=== PATIENT | male | born 1945 | race Caucasian/White ===

== ENCOUNTER 2017-06-22 16:39 | Observation (INO) | payer MEDICARE ==
[~2017-06-22] VITALS: Ht 172.7 cm; Wt 83.8 kg
[~2017-06-22 16:39] MED LIST: ALBUTEROL0.5 % IN; AMLODIPINE5 MG PO; AMOX/K CLAV500 MG PO; AMOXICILLIN500 MG OR; ANUCORT-HC25 MG RE; ASTEPRO0.15 %; BENICAR20 MG OR; BL ADULT ASA81 MG OR; BROVANA15 MCG IN; CARDIZEM120 MG OR; CARTIA XT240 MG/24 PO; CIPRO500 MG PO; CO Q 10100 MG OR; CRESTOR20 MG PO; DILAUDID 2MG2 MG/TA1 PO; DILTIAZEM120 M1 OR; DILTIAZEM30 MG OR; DUONEB IN; FLONASE NASAL50 MCG; GARLIC1000 MG OR; GNP MELATONIN3 MG OR; ISOSORB MONO30 MG PO; KEFLEX500 MG PO; KRILL OIL300 MG OR; KRILL OIL300 MG PO; LEVOTHYROXIN25 MC1 OR; LEVOTHYROXIN50 MCG PO; LEVOTHYROXINE25 MCG OR; LEVOTHYROXINE50 MCG OR; LIDOCAINE; LOPID600 MG PO; LORTAB 10-325 M1 TAB PO; LORTAB 5 OR; LUTEIN20 MG OR; MEDDOSEPAK OR; MEDDOSEPAK PO; MELOXICAM15 MG PO; METOPROL TAR25 MG PO; MULTIVITAM10 OR; OMEPRAZOLE20 MG PO; OMNARIS; PATANASE0.6 %; PREDNISONE20 MG OR; PULMICORT0.5MG/2ML IN; RED YEAST XX; SIMVASTATIN20 MG OR; SYMBICORT1 AE1 IN; VITAMIN B-121000 MC1 SL; ZINC25 MG OR; ZITHROMAX500 MG PO
--- NOTE | 2017-06-22 16:45 | NUR ---
PT IMMEDIATELY TO ROOM 6, EKG PERFORMED.
[2017-06-22] MEDS ORDERED: PANTOPRAZOLE SO40 MG PO (17:06)
[2017-06-22] MEDS ORDERED: METO25TAB PO (17:09)
--- NOTE | 2017-06-22 17:29 | NUR ---
VSS. IV SITE HEALTHY. NO C/O PAIN/DISCOMFORT. RESP EVEN AND UNLABORED. SKIN WARM AND DRY. CALL LIGHT WITHIN REACH.
[2017-06-22 17:34] LABS: HEMATOCRIT 40.3 % (39.0-50.0); HEMOGLOBIN 13.3 g/dl (14.0-18.0); IMMATURE GRANULOCYTES 0.3 % (0.0-1.0); MEAN CELL VOLUME 94.2 fL CALC (80.0-100.0); MEAN CORPUSCULAR HGB 31.1 pG CALC (26.0-32.0); NEUT# 4.94 thou/uL (1.82-7.42); RED BLOOD COUNT 4.28 mill/uL (4.70-6.10); RED CELL DISTRI WIDTH 13.2 % (11.5-15.5)
[2017-06-22 17:46] LABS: ALBUMIN 4.5 g/dL (3.2-5.0); ALKALINE PHOSPHATASE 58 u/l (38-126); AMYLASE 100 u/l (30-110); ANION GAP 18 (6-22 (CALC)); BILIRUBIN, TOTAL 0.4 mg/dL (0.0-1.4); BUN 30 mg/dL (8-23); BUN/CREATININE RATIO 16 (12-20 (CALC)); CALCIUM 9.6 mg/dL (8.4-10.2); CARBON DIOXIDE 20 mmol/l (22-30); CHLORIDE 108 mmol/l (95-108); CREATININE 1.9 mg/dL (0.7-1.3); GFR 35 ML/MIN (>=60 (CALC)); GFR FOR AFR.AMER. 42 ML/MIN (>=60 (CALC)); GLUCOSE 143 mg/dL (82-115); LIPASE 164 u/l (23-300); POTASSIUM 4.1 mmol/l (3.5-5.1); SGOT/AST 34 u/l (19-48); SGPT/ALT 54 u/l (11-66); SODIUM 142 mmol/l (137-146); TOTAL PROTEIN 7.3 g/dL (6.3-8.2)
[2017-06-22 17:49] LABS: PROTHROMBIN TIME 10.4 SECONDS (9.0-12.5)
[2017-06-22 17:58] LABS: MYOGLOBIN 168 ng/mL (0 - 121)
--- NOTE | 2017-06-22 18:30 | NUR ---
PT AWARE OF PENDING ADMISSION. NO FURTHER C/O CHEST PAIN. NO N/V. SKIN WARM AND DRY. VSS. IV SITE HEALTHY. RESP EVEN AND UNLABORED. ANAT.
--- NOTE | 2017-06-22 19:07 | NUR ---
REPORT CALLED TO NURSE ON [facility]. TELEMETRY IN PLACE. IV SITE HEALTHY.
--- NOTE | 2017-06-22 19:15 | NUR ---
PT ARRIVED TO UNIT VIA STRETCHER WITH ER STAFF. AMBULATED TO BED INDEPENDENTLY WITH SUPERVISION. ALERT AND ORIENTED. DENIES PAIN UPON ARRIVAL. RESPIRATIONS EVEN AND UNLABORED. ORIENTED TO ROOM AND CALL LIGHT SYSTEM. TO BRING CPAP MACHINE TO SLEEP WTIH. NO REQUESTS AT THIS TIME. SAFETY MEASURES IN PLACE. CALL LIGHT WITHIN REACH.
--- NOTE | 2017-06-22 19:15 | NUR ---
PT. TAKEN TO MS VIA STRETCHER, NO C/O.
[2017-06-22 19:20] VITALS: BP 129/83
[2017-06-23 00:20] VITALS: BP 106/67
[2017-06-23 00:46] LABS: URINE BILIRUBIN - DIPSTICK NEGATIVE (NEGATIVE); URINE BLOOD DIPSTICK TRACE-LYSED (NEGATIVE); URINE CLARITY CLEAR; URINE COLOR YELLOW; URINE GLUCOSE - DIPSTICK NEGATIVE (NEGATIVE); URINE KETONE NEGATIVE (NEGATIVE); URINE LEUK ESTERASE NEGATIVE (NEGATIVE); URINE NITRITE - DIPSTICK NEGATIVE (Negative); URINE PROTEIN - DIPSTICK NEGATIVE (NEG-TRACE); URINE UROBILINOGEN - DIPSTICK 0.2 E.U./dL (0.2)
--- NOTE | 2017-06-23 00:49 | NUR ---
PT ASLEEP AT THIS TIME. NO SIGNS OF DISTRESS NOTED. RESPIRATIONS EVEN AND UNLABORED. SAFETY MEASURES IN PLACE. CALL LIGHT WITHIN REACH.
--- NOTE | 2017-06-23 04:01 | NUR ---
PT ASLEEP AT THIS TIME. NO SIGNS OF DISTRESS NOTED. RESPIRATIONS EVEN AND UNLABORED. NO CHANGES IN ASSESSMENT NOTED. SAFETY MEASURES IN PLACE. CALL LIGHT WITHIN REACH.
[2017-06-23 04:35] VITALS: BP 116/71
[2017-06-23 06:26] LABS: CHOLESTEROL HDL RATIO 2.2 (<4.4 (CALC))
--- NOTE | 2017-06-23 07:00 | NUR ---
REPORT RECIEVED FROM MARIKA BROWNE; PT RESTING IN BED WITH EYES CLOSED AND CPAP IN PLACE; FALL PRECAUTIONS IN PLACE; CALL LIGHT WITHIN REACH; WILL CONTINUE TO MONITOR
[2017-06-23 09:02] VITALS: BP 123/68
[2017-06-23 11:32] VITALS: BP 129/69
--- NOTE | 2017-06-23 14:35 | NUR ---
Discharge instructions given. Patient verbalizes understanding of same. Discharged in stable condition via Wheelchair to Home with family. All belongings sent with pt.
== END 2017-06-23 14:36 | disposition home or self-care (01) ==
LOC: ENPENDDIS → ED 16:39 → ED-I 17:25 → ED 17:25 → ED-I 18:10 → ED 18:30 → MS2 18:31
PROVIDERS: Emergency Medicine; Internal Medicine; ADMIT Internal Medicine; ATTEND Internal Medicine
DX: I25.119 Atherosclerotic heart disease of native coronary artery with unspecified angina pectoris (principal); I12.9 Hypertensive chronic kidney disease with stage 1 through stage 4 chronic kidney disease, or unspecified chronic kidney disease; N18.3 Chronic kidney disease, stage 3 (moderate); J44.9 Chronic obstructive pulmonary disease, unspecified; E78.5 Hyperlipidemia, unspecified; E03.9 Hypothyroidism, unspecified; I25.2 Old myocardial infarction; Z87.442 Personal history of urinary calculi; Z85.46 Personal history of malignant neoplasm of prostate; Z87.891 Personal history of nicotine dependence

== ENCOUNTER 2018-01-21 06:38 | Day surgery (SDC) | payer MEDICARE ==
[~2018-01-21] VITALS: Ht 172.7 cm; Wt 72.6 kg
[~2018-01-21 06:38] MED LIST changes: +CLONAZEPAM0.5 M1 PO; +CO Q 10100 MG PO; +METO25TAB PO; +MULTI PO; +OMEGA-3 KRILL500 MG PO; +PANTOPRAZOLE SO40 MG PO; +VITAMIN B-121000 MC2 PO; +ZETIA10 MG PO; +ZINC25 MG PO
[2018-01-21 09:49] VITALS: BP 101/60
== END 2018-01-21 10:10 | disposition home or self-care (01) ==
LOC: ENDO 06:38 → ORM 10:15 → ENDO 13:15 → ORM 13:15
PROVIDERS: ATTEND Internal Medicine Gastroenterology
PROC: 0DBN8ZX Excision of Sigmoid Colon, Via Natural or Artificial Opening Endoscopic, Diagnostic (ICD-10-PCS; principal; 2018-01-21)
PROC: 0DBH8ZX Excision of Cecum, Via Natural or Artificial Opening Endoscopic, Diagnostic (ICD-10-PCS; 2018-01-21)
PROC: 0DBL8ZX Excision of Transverse Colon, Via Natural or Artificial Opening Endoscopic, Diagnostic (ICD-10-PCS; 2018-01-21)
PROC: 0DBM8ZX Excision of Descending Colon, Via Natural or Artificial Opening Endoscopic, Diagnostic (ICD-10-PCS; 2018-01-21)
PROC: 3E0H8GC Introduction of Other Therapeutic Substance into Lower GI, Via Natural or Artificial Opening Endoscopic (ICD-10-PCS; 2018-01-21)
DX: K57.90 Diverticulosis of intestine, part unspecified, without perforation or abscess without bleeding (principal); K59.00 Constipation, unspecified; D12.0 Benign neoplasm of cecum; D12.5 Benign neoplasm of sigmoid colon; D12.3 Benign neoplasm of transverse colon; K64.4 Residual hemorrhoidal skin tags; K64.8 Other hemorrhoids; K63.89 Other specified diseases of intestine; G47.30 Sleep apnea, unspecified; E03.9 Hypothyroidism, unspecified; K21.9 Gastro-esophageal reflux disease without esophagitis; I10 Essential (primary) hypertension; I25.10 Atherosclerotic heart disease of native coronary artery without angina pectoris; J45.909 Unspecified asthma, uncomplicated; Z85.46 Personal history of malignant neoplasm of prostate; Z87.442 Personal history of urinary calculi

== ENCOUNTER 2018-05-20 09:38 | Day surgery (SDC) | payer MEDICARE ==
[~2018-05-20] VITALS: Ht 172.7 cm; Wt 75.3 kg
[~2018-05-20 09:38] MED LIST changes: +DOCUSATE SOD100 MG PO; +ISOSORB MONO120 MG PO; +MATZIM LA240 MG PO
[2018-05-20 13:24] VITALS: BP 125/74
== END 2018-05-20 13:30 | disposition home or self-care (01) ==
LOC: ENDO 09:38 → ORM 10:15 → ENDO 10:15
PROVIDERS: ATTEND Internal Medicine Gastroenterology
PROC: 0DBH8ZX Excision of Cecum, Via Natural or Artificial Opening Endoscopic, Diagnostic (ICD-10-PCS; principal; 2018-05-20)
PROC: 0DBL8ZX Excision of Transverse Colon, Via Natural or Artificial Opening Endoscopic, Diagnostic (ICD-10-PCS; 2018-05-20)
PROC: 0DBN8ZX Excision of Sigmoid Colon, Via Natural or Artificial Opening Endoscopic, Diagnostic (ICD-10-PCS; 2018-05-20)
PROC: 3E0H8GC Introduction of Other Therapeutic Substance into Lower GI, Via Natural or Artificial Opening Endoscopic (ICD-10-PCS; 2018-05-20)
DX: K59.00 Constipation, unspecified (principal); K57.30 Diverticulosis of large intestine without perforation or abscess without bleeding; K64.8 Other hemorrhoids; K64.4 Residual hemorrhoidal skin tags; D12.0 Benign neoplasm of cecum; D12.3 Benign neoplasm of transverse colon; D12.5 Benign neoplasm of sigmoid colon; K21.9 Gastro-esophageal reflux disease without esophagitis; I10 Essential (primary) hypertension; I25.10 Atherosclerotic heart disease of native coronary artery without angina pectoris; E03.9 Hypothyroidism, unspecified; J45.909 Unspecified asthma, uncomplicated; G47.30 Sleep apnea, unspecified; Z87.442 Personal history of urinary calculi; Z85.46 Personal history of malignant neoplasm of prostate; Z86.010 Personal history of colon polyps

== ENCOUNTER 2018-08-16 02:47 | Emergency (ER) | payer MEDICARE ==
[~2018-08-16] VITALS: Ht 172.7 cm; Wt 78.2 kg
[2018-08-16] MEDS ORDERED: AMOX/K CLAV875 M1 PO (03:16)
[2018-08-16] MEDS ORDERED: LORTAB 1010 MG PO (03:16)
[2018-08-16] MEDS ORDERED: CORTISPORIN OTI10 ML AD (03:16)
[2018-08-16 03:22] VITALS: BP 134/88
== END 2018-08-16 03:28 | disposition home or self-care (01) ==
LOC: ED 02:47
DX: H66.91 Otitis media, unspecified, right ear (principal); J44.9 Chronic obstructive pulmonary disease, unspecified; I25.10 Atherosclerotic heart disease of native coronary artery without angina pectoris; K21.9 Gastro-esophageal reflux disease without esophagitis; E07.9 Disorder of thyroid, unspecified

== ENCOUNTER 2018-08-18 06:38 | Emergency (ER) | payer MEDICARE ==
[~2018-08-18] VITALS: Ht 172.7 cm; Wt 78.0 kg
[~2018-08-18 06:38] MED LIST changes: +AMOX/K CLAV875 M1 PO; +CORTISPORIN OTI10 ML AD; +LORTAB 1010 MG PO
[2018-08-18] MEDS ORDERED: OMNICEF300 M1 PO (07:28)
[2018-08-18] MEDS ORDERED: FLOXIN OTIC0.3 % AD (07:28)
[2018-08-18 07:38] VITALS: BP 148/79
[2018-08-18] MEDS ORDERED: CIPRODEX1 ML AD (07:55)
== END 2018-08-18 07:44 | disposition home or self-care (01) ==
LOC: ED 06:38
DX: H60.91 Unspecified otitis externa, right ear (principal); J44.9 Chronic obstructive pulmonary disease, unspecified; I25.10 Atherosclerotic heart disease of native coronary artery without angina pectoris; K21.9 Gastro-esophageal reflux disease without esophagitis

== ENCOUNTER → 2019-01-25 | Outpatient (REF) | payer MEDICARE ==
[~2019-01-25] MED LIST changes: +CIPRODEX1 ML AD; +FLOXIN OTIC0.3 % AD; +OMNICEF300 M1 PO
== END | disposition home or self-care (01) ==
LOC: DI 14:49
PROVIDERS: ATTEND Internal Medicine
DX: M25.421 Effusion, right elbow (principal)

== ENCOUNTER → 2019-01-26 | Outpatient (REF) | payer MEDICARE ==
[2019-01-26 10:37] LABS: ALBUMIN 4.3 g/dL (3.2-5.0); BILIRUBIN, TOTAL 0.4 mg/dL (0.0-1.4); CREATININE 1.7 mg/dL (0.7-1.3); POTASSIUM 4.4 mmol/l (3.5-5.1); TOTAL PROTEIN 6.9 g/dL (6.3-8.2)
[2019-01-26 11:04] LABS: TSH, 3RD GENERATION 2.08 uIU/mL (0.47 - 4.68)
[2019-01-26 11:20] LABS: HEMATOCRIT 41.5 % (39.0-50.0); HEMOGLOBIN 13.5 g/dl (14.0-18.0); IMMATURE GRANULOCYTES 0.3 % (0.0-5.0); MEAN CELL VOLUME 96.1 fL CALC (80.0-100.0); MEAN CORPUSCULAR HGB 31.3 pG CALC (26.0-32.0); MEAN CORPUSCULAR HGB CONC 32.5 g/L CALC (32.0-36.0); NEUT# 3.58 thou/uL (1.82-7.42); RED BLOOD COUNT 4.32 mill/uL (4.70-6.10); RED CELL DISTRI WIDTH 13.5 % (11.5-15.5)
== END | disposition home or self-care (01) ==
LOC: LAB 09:20
PROVIDERS: ATTEND Internal Medicine
DX: C61 Malignant neoplasm of prostate (principal); E03.4 Atrophy of thyroid (acquired); I10 Essential (primary) hypertension; N18.3 Chronic kidney disease, stage 3 (moderate)

== ENCOUNTER 2019-08-04 08:38 | Day surgery (SDC) | payer MEDICARE ==
[~2019-08-04] VITALS: Ht 172.7 cm; Wt 74.8 kg
[~2019-08-04 08:38] MED LIST changes: +RANITIDINE150 M1 PO
[2019-08-04 10:52] VITALS: BP 139/76
== END 2019-08-04 11:00 | disposition home or self-care (01) ==
LOC: ENDO 08:38 → ORM 08:45 → ENDO 08:45
PROVIDERS: ATTEND Internal Medicine Gastroenterology
PROC: 0DBK8ZX Excision of Ascending Colon, Via Natural or Artificial Opening Endoscopic, Diagnostic (ICD-10-PCS; principal; 2019-08-04)
PROC: 0DB48ZX Excision of Esophagogastric Junction, Via Natural or Artificial Opening Endoscopic, Diagnostic (ICD-10-PCS; 2019-08-04)
PROC: 0DB78ZX Excision of Stomach, Pylorus, Via Natural or Artificial Opening Endoscopic, Diagnostic (ICD-10-PCS; 2019-08-04)
DX: D12.2 Benign neoplasm of ascending colon (principal); K57.30 Diverticulosis of large intestine without perforation or abscess without bleeding; K64.8 Other hemorrhoids; K64.4 Residual hemorrhoidal skin tags; K21.9 Gastro-esophageal reflux disease without esophagitis; K29.80 Duodenitis without bleeding; K31.7 Polyp of stomach and duodenum; K44.9 Diaphragmatic hernia without obstruction or gangrene; K29.70 Gastritis, unspecified, without bleeding; I10 Essential (primary) hypertension; I25.10 Atherosclerotic heart disease of native coronary artery without angina pectoris; E03.9 Hypothyroidism, unspecified; Z86.010 Personal history of colon polyps; Z79.899 Other long term (current) drug therapy

== ENCOUNTER 2020-06-17 18:30 | Emergency (ER) | payer MEDICARE ==
[~2020-06-17] VITALS: Ht 172.7 cm; Wt 75.0 kg
[~2020-06-17 18:30] MED LIST changes: -METO25TAB PO; +TOPROL XL25 M1 PO
[2020-06-17 18:55] VITALS: BP 117/68
[2020-06-17] MEDS ORDERED: BROVANA15 MCG/2 M NEB (19:00)
[2020-06-17] MEDS ORDERED: PANTOPRAZOLE SO40 M1 PO (19:01)
[2020-06-17] MEDS ORDERED: BUDESONID2 IN (19:01)
[2020-06-17] MEDS ORDERED: LEVOTHYROXIN50 MCG PO (19:02)
[2020-06-17] MEDS ORDERED: MULTIVITAMI1 PO (19:04)
[2020-06-21] MEDS ORDERED: IPRATROPIU0.5 MG/3 M IN (09:10)
== END 2020-06-17 18:55 | disposition home or self-care (01) ==
LOC: ED 18:30
PROC: 09C4XZZ Extirpation of Matter from Left External Auditory Canal, External Approach (ICD-10-PCS; principal; 2020-06-17)
DX: T16.2XXA Foreign body in left ear, initial encounter (principal); I10 Essential (primary) hypertension; J44.9 Chronic obstructive pulmonary disease, unspecified; I25.10 Atherosclerotic heart disease of native coronary artery without angina pectoris; X58.XXXA Exposure to other specified factors, initial encounter

== ENCOUNTER 2020-06-28 06:42 | Day surgery (SDC) | payer MEDICARE ==
[~2020-06-28] VITALS: Ht 172.7 cm; Wt 77.1 kg
[~2020-06-28 06:42] MED LIST changes: +BROVANA15 MCG/2 M NEB; +BUDESONID2 IN; +IPRATROPIU0.5 MG/3 M IN; +MULTIVITAMI1 PO; +PANTOPRAZOLE SO40 M1 PO
[2020-06-28 09:19] VITALS: BP 116/75
== END 2020-06-28 09:45 | disposition home or self-care (01) ==
LOC: ORM 06:42
PROVIDERS: ATTEND Urology
PROC: 0VB03ZX Excision of Prostate, Percutaneous Approach, Diagnostic (ICD-10-PCS; principal; 2020-06-28)
PROC: BV49ZZZ Ultrasonography of Prostate and Seminal Vesicles (ICD-10-PCS; 2020-06-28)
DX: C61 Malignant neoplasm of prostate (principal); I12.9 Hypertensive chronic kidney disease with stage 1 through stage 4 chronic kidney disease, or unspecified chronic kidney disease; N18.3 Chronic kidney disease, stage 3 (moderate); E03.9 Hypothyroidism, unspecified; Z11.59 Encounter for screening for other viral diseases

== ENCOUNTER 2020-06-30 23:55 | Emergency (ER) | payer MEDICARE ==
[~2020-06-30] VITALS: Ht 172.7 cm; Wt 75.0 kg
[2020-07-01 00:48] LABS: URINE BLOOD DIPSTICK LARGE (NEGATIVE); URINE COLOR YELLOW; URINE GLUCOSE - DIPSTICK NEGATIVE (NEGATIVE); URINE KETONE TRACE mg/dL (NEGATIVE); URINE LEUK ESTERASE TRACE (NEGATIVE); URINE NITRITE - DIPSTICK NEGATIVE (Negative); URINE PH 5.5 (4.5-8.0); URINE PROTEIN - DIPSTICK 30 mg/dL (NEG-TRACE); URINE SPECIFIC GRAVITY 1.025; URINE UROBILINOGEN - DIPSTICK 0.2 E.U./dL (0.2)
[2020-07-01 00:49] LABS: HEMATOCRIT 38.9 % (39.0-50.0); HEMOGLOBIN 12.4 g/dl (14.0-18.0); IMMATURE GRANULOCYTES 0.6 % (0.0-5.0); MEAN CELL VOLUME 95.8 fL CALC (80.0-100.0); MEAN CORPUSCULAR HGB 30.5 pG CALC (26.0-32.0); MEAN CORPUSCULAR HGB CONC 31.9 g/dL CAL (32.0-36.0); NEUT# 12.49 thou/uL (1.82-7.42); RED BLOOD COUNT 4.06 mill/uL (4.70-6.10); RED CELL DISTRI WIDTH 13.5 % (11.5-15.5)
[2020-07-01 01:03] LABS: URINE BILIRUBIN - DIPSTICK NEGATIVE (NEGATIVE)
[2020-07-01 01:09] LABS: ALBUMIN 3.8 g/dL (3.2-5.0); POTASSIUM 4.3 mmol/l (3.5-5.1); TOTAL PROTEIN 6.9 g/dL (6.3-8.2)
[2020-07-01 01:11] LABS: URINE BACTERIA FEW hpf; URINE RBC 25-50 RBC/hpf (0-5); URINE SQUAMOUS EPITHELIAL CELL FEW EPI/hpf (0-FEW)
[2020-07-01 01:11] LABS: BILIRUBIN, TOTAL 0.9 mg/dL (0.0-1.4)
[2020-07-01] MEDS ORDERED: KEFLEX500 M1 PO (01:58)
[2020-07-01 02:02] VITALS: BP 98/64
== END 2020-07-01 02:15 | disposition home or self-care (01) ==
LOC: ED 23:55
PROVIDERS: Family Medicine
DX: N39.0 Urinary tract infection, site not specified (principal); I10 Essential (primary) hypertension; J44.9 Chronic obstructive pulmonary disease, unspecified; I25.10 Atherosclerotic heart disease of native coronary artery without angina pectoris; Z98.890 Other specified postprocedural states; Z11.59 Encounter for screening for other viral diseases

== ENCOUNTER 2021-05-08 08:54 | Day surgery (SDC) | payer MEDICARE ==
[~2021-05-08 08:54] MED LIST changes: +DOCUSATE SO1 PO; +KAPSPARGO SPRIN25 MG; +KEFLEX500 M1 PO; +TRAZODONE50 MG PO; +[UNRECOGNIZED DRUG - OTHER] PO
[2021-05-08 11:42] VITALS: BP 147/94
== END 2021-05-08 12:06 | disposition home or self-care (01) ==
LOC: ENDO 08:54 → ORM 11:30 → ENDO 12:06
PROVIDERS: ATTEND Surgery
PROC: 0DBH8ZX Excision of Cecum, Via Natural or Artificial Opening Endoscopic, Diagnostic (ICD-10-PCS; principal; 2021-05-08)
DX: Z12.11 Encounter for screening for malignant neoplasm of colon (principal); D12.0 Benign neoplasm of cecum; K57.30 Diverticulosis of large intestine without perforation or abscess without bleeding; K59.00 Constipation, unspecified; L29.0 Pruritus ani; I10 Essential (primary) hypertension; Z86.010 Personal history of colon polyps